=== PATIENT | male | born 1985 | race Two or more races ===

== ENCOUNTER 2022-05-24 15:14 | Emergency (ER) | payer SELFPAY ==
[~2022-05-24] VITALS: Ht 154.9 cm; Wt 61.2 kg
[~2022-05-24 15:14] MED LIST: CELEBREX50 MG PO; CYMBALTA30 MG PO; GABAPENTIN600 MG PO; HYDROXYZINE HCL25 MG PO; SEROQUEL25 MG PO
[2022-05-24] MEDS ORDERED: DOXYCYCLINE HY100 MG PO (23:13)
== END 2022-05-24 23:29 | disposition home or self-care (01) ==
LOC: ED 15:14
DX: L03.116 Cellulitis of left lower limb (principal); L02.416 Cutaneous abscess of left lower limb; F17.200 Nicotine dependence, unspecified, uncomplicated
CPT/HCPCS: 99283; A9270

== ENCOUNTER 2022-06-04 17:00 | Emergency (ER) | payer SELFPAY ==
[~2022-06-04] VITALS: Ht 154.9 cm; Wt 61.2 kg
[~2022-06-04 17:00] MED LIST changes: +DOXYCYCLINE HY100 MG PO
--- OUTSIDE RECORDS SUMMARY | 2022-06-04 17:08 | XMS ---
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 Care Guidelines exist for the following facilities: [facility] ( 07/23/2020 ) [facility] VISIT COUNT (12 MO.) 2 [facility] TOTAL 2 NOTE: Visits indicate total known visits. ED/UCC VISIT TRACKING (12 MO.) 06/04/2022 17:01 [facility] [place] TYPE: Emergency COMPLAINT: - MEDICATION REFILL 05/24/2022 15:15 [facility] [place] TYPE: Emergency COMPLAINT: - SKIN PROBLEM DIAGNOSES: - Cutaneous abscess of left lower limb - Nicotine dependence, unspecified, uncomplicated - Local infection of the skin and subcutaneous tissue, unspecified - Cellulitis of left lower limb INPATIENT VISIT TRACKING (12 MO.) No inpatient visits to display in this time frame [email or web address]
[2022-06-04] MEDS ORDERED: DOXYCYCLINE HY100 MG PO (19:16)
== END 2022-06-04 19:35 | disposition home or self-care (01) ==
LOC: ED 17:00
DX: L03.116 Cellulitis of left lower limb (principal); F17.200 Nicotine dependence, unspecified, uncomplicated
CPT/HCPCS: 99283; A9270

== ENCOUNTER 2022-10-15 13:20 | Emergency (ER) | payer OTHER ==
[~2022-10-15] VITALS: Ht 154.9 cm; Wt 61.2 kg
[2022-10-15] MEDS ORDERED: VISTARIL25 MG PO (17:36)
[2022-10-15] MEDS ORDERED: DOXYCYCLINE HY100 MG PO (17:36)
[2022-10-15 17:53] VITALS: BP 102/68
== END 2022-10-15 17:53 | disposition home or self-care (01) ==
LOC: ED 13:20
DX: L08.89 Other specified local infections of the skin and subcutaneous tissue (principal); B95.8 Unspecified staphylococcus as the cause of diseases classified elsewhere; F17.200 Nicotine dependence, unspecified, uncomplicated
CPT/HCPCS: 99282

== ENCOUNTER 2023-02-12 19:12 | Emergency (ER) | payer OTHER ==
[~2023-02-12] VITALS: Ht 154.9 cm; Wt 50.0 kg
--- OUTSIDE RECORDS SUMMARY | ~2023-02-12 | XMS | Continuity of Care Document ---
Demographics + + + | Address | [address] | | | [place] [address] | + + + | Preferred Language | Unknown | + + + | Marital Status | Never | + + + | Sabianist Affiliation | Unknown | + + + | Race | Unknown | + + + | Ethnic Group | Not or | + + + Author + + + | Author | [facility] | + + + | Organization | [facility] | + + + | Address | [address] | | | [place] [address] | + + + | Phone | | + + + Care Team Providers + + + + | Care Candle Wrapper Name | Role | Phone | + + + + Unavailable | Unavailable | + + + + Allergies No information. Encounters No information. Functional Status No information. Immunizations No information. Medications No information. Problems + + + + | date | description | facility | + + + + | 2023-02-11 17:29 | NICOTINE DEPENDENCE, | [facility] | | | UNSPECIFIED, UNCOMPLICATED | | + + + + | 2023-02-11 17:29 | CUTANEOUS ABSCESS OF LEFT | [facility] | | | UPPER LIMB | | + + + + | 2023-02-11 17:29 | CELLULITIS OF LEFT UPPER | [facility] | | | LIMB | | + + + + | 2023-02-11 17:29 | OTHER CARE HOME (CURRENT) | [facility] | | | DRUG THERAPY | | + + + + Procedures No information. Results/Labs No information. Social History +--------+ + + | date | description | facility | +--------+ + + Vital Signs No information."
--- OUTSIDE RECORDS SUMMARY | ~2023-02-12 | XMS | Continuity of Care Document ---
Demographics + + + | Address | [address] | | | [place] [address] | + + + | Preferred Language | Unknown | + + + | Marital Status | Never | + + + | Cheondoism Affiliation | Unknown | + + + | Race | Unknown | + + + | Ethnic Group | Not or | + + + Author + + + | Author | [facility] | + + + | Organization | [facility] | + + + | Address | [address] | | | [place] [address] | + + + | Phone | | + + + Care Team Providers + + + + | Care Surgical Specialist Name | Role | Phone | + [...] + + | 2023-02-11 17:29 | OTHER [facility] (CURRENT) | [facility] | | | DRUG THERAPY | | + + + + Procedures No information. Results/Labs No information. Social History +--------+ + + | date | description | facility | +--------+ + + Vital Signs No information."
[~2023-02-12 19:12] MED LIST changes: +VISTARIL25 MG PO
--- OUTSIDE RECORDS SUMMARY | 2023-02-12 19:15 | XMS ---
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 ED/UCC VISIT TRACKING (12 MO.) 02/12/2023 19:13 [facility] [place] TYPE: Emergency COMPLAINT: - LT HAND SWELLING 02/11/2023 17:29 [facility] [place] TYPE: Emergency COMPLAINT: - BUG BITE DIAGNOSES: - Cellulitis of left upper limb - Cutaneous abscess of left upper limb - Nicotine dependence, unspecified, uncomplicated - Other intermediate (current) drug therapy 02/11/2023 01:09 [facility] [place] TYPE: Emergency COMPLAINT: - BUG BITE 02/10/2023 17:19 [facility] TYPE: Emergency COMPLAINT: - BUG BITE 11/13/2022 08:16 [facility] [place] TYPE: Emergency COMPLAINT: - MEDICATION REFILL, LEG SORES, WEAK, FAINT DIAGNOSES: - Cellulitis of left lower limb - Cellulitis of right lower limb - Disorder of the skin and subcutaneous tissue, unspecified - Nicotine dependence, unspecified, uncomplicated 10/15/2022 13:22 [facility] TYPE: Emergency COMPLAINT: - L LEG WOUND DIAGNOSES: - Local infection of the skin and subcutaneous tissue, unspecified - Nicotine dependence, unspecified, uncomplicated - Other specified local infections of the skin and subcutaneous tissue - Unspecified staphylococcus as the cause of diseases classified elsewhere 06/04/2022 17:01 [facility] [place] TYPE: Emergency COMPLAINT: - MEDICATION REFILL DIAGNOSES: - Cellulitis of left lower limb - Nicotine dependence, unspecified, uncomplicated 05/24/2022 15:15 [facility] TYPE: Emergency COMPLAINT: - SKIN PROBLEM DIAGNOSES: - Cellulitis of left lower limb - Cutaneous abscess of left lower limb - Local infection of the skin and subcutaneous tissue, unspecified - Nicotine dependence, unspecified, uncomplicated INPATIENT VISIT TRACKING (12 MO.) No inpatient visits to display in this time frame [id number]
[2023-02-12 19:43] VITALS: BP 100/71
== END 2023-02-12 19:43 | disposition home or self-care (01) ==
LOC: ED 19:12
DX: L03.114 Cellulitis of left upper limb (principal)
CPT/HCPCS: 99283

== ENCOUNTER 2023-04-27 11:22 | Emergency (ER) | payer OTHER ==
[~2023-04-27] VITALS: Ht 154.9 cm; Wt 60.9 kg
--- OUTSIDE RECORDS SUMMARY | 2023-04-27 11:26 | XMS ---
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 - Patient with suicidal and/or homicidal ideations eloped. - Patient eloped with IV in place. Details: Patient LWBS CRITERIA MET - 6 ED Visits in 6 Months CARE PROVIDERS -, [place]- Dentist: Rate Marker [facility] PHONE: [phone] Care Guidelines exist for the following facilities: [facility] VISIT COUNT (12 MO.) [address] [place] [address] TOTAL 9 NOTE: Visits indicate total known visits. 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 02/11/2023 01:09 [facility] TYPE: Emergency COMPLAINT: - BUG BITE DIAGNOSES: - Bitten or stung by nonvenomous insect and other nonvenomous arthropods, initial encounter - Insect bite (nonvenomous) of left elbow, initial encounter - Local infection of the skin and subcutaneous tissue, unspecified - Nicotine dependence, unspecified, uncomplicated 02/10/2023 17:19 [facility] TYPE: Emergency COMPLAINT: - BUG BITE 11/13/2022 08:16 [facility] TYPE: Emergency COMPLAINT: - MEDICATION REFILL, LEG SORES, WEAK, FAINT DIAGNOSES: - Cellulitis of left lower limb - Cellulitis of right lower limb - Disorder of the skin and subcutaneous tissue, unspecified - Nicotine dependence, unspecified, uncomplicated 10/15/2022 13:22 [facility] TYPE: Emergency COMPLAINT: - L LEG [...] Nicotine dependence, unspecified, uncomplicated 05/24/2022 15:15 [facility] TYPE: Emergency COMPLAINT: - SKIN PROBLEM DIAGNOSES: - Cellulitis of left lower limb - Cutaneous abscess of left lower limb - Local infection of the skin and subcutaneous tissue, unspecified - Nicotine dependence, unspecified, uncomplicated INPATIENT VISIT TRACKING (12 MO.) No inpatient visits to display in this time frame [id number]
[2023-04-27 12:59] LABS: HEMATOCRIT 40.6 % (35.0-50.0); HEMOGLOBIN 13.2 g/dL (12.0-18.0); MCH 31.1 (27-36); MCHC 32.6 g/dl (30-36); MCV 95.3 fl (81-99); PLATELET COUNT 270 K/uL (140-440); RBC 4.26 M/ul (4.3-5.7); RDW 13.4 (10.5-15.0)
[2023-04-27 13:10] LABS: ALBUMIN 3.3 g/dL (3.4-5.0); ALBUMIN/GLOBULIN RATIO 0.97 (1.1-2.4); ANION GAP 8.3 (7-21); BILIRUBIN, TOTAL 1.8 ng/dL (0.2-1.0); BUN/CREATININE RATIO 18.36 (6.0-28.6); CALCIUM 8.7 mg/dL (8.5-10.1); CREATININE, SERUM 0.98 mg/dL (0.70-1.30); POTASSIUM 4.3 mmol/L (3.5-5.1); PROTEIN, TOTAL 6.7 g/dL (6.4-8.2)
[2023-04-27 13:23] LABS: EOSINOPHILS, MANUAL DIFF 1; LYMPHOCYTES, MANUAL DIFF 9; MONOCYTES, MANUAL DIFF 6; NEUTROPHILS, MANUAL DIFF 84
[2023-04-27 14:43] LABS: LACTIC ACID, BLOOD 1.5 mmol/L (0.4-2.0)
[2023-04-27] MEDS ORDERED: DOXYCYCLINE HY100 MG PO (15:45)
[2023-04-27 15:57] VITALS: BP 101/69
== END 2023-04-27 15:55 | disposition home or self-care (01) ==
LOC: ED 11:22
PROVIDERS: Emergency Medicine
DX: L02.415 Cutaneous abscess of right lower limb (principal); L03.115 Cellulitis of right lower limb; F17.200 Nicotine dependence, unspecified, uncomplicated; Z79.899 Other long term (current) drug therapy; Z59.00 Homelessness unspecified
CPT/HCPCS: 36415; 80053; 83605; 85025; J0878

== ENCOUNTER 2023-04-29 16:07 | Emergency (ER) | payer OTHER ==
[~2023-04-29] VITALS: Ht 154.9 cm; Wt 49.9 kg
--- OUTSIDE RECORDS SUMMARY | 2023-04-29 16:09 | XMS ---
PreManage Notification: NYDIA BLANCO Security Corporate Safety Coordinator Events 1 event(s) in the past 18 months Most recent security events: Elopement at [facility] 02/10/2023 17:19 - Patient eloped before treatment completed. - Patient with suicidal and/or homicidal ideations eloped. - Patient eloped with IV in place. Details: Patient LWBS CRITERIA MET - 6 ED Visits in 6 Months - [facility] - 2 Visits in 30 Days CARE PROVIDERS -, [place]- Dentist: Bluing Oven Tender [facility] PHONE: [phone] Care Guidelines exist for the following facilities: [facility] VISIT COUNT (12 MO.) 10 [facility] TOTAL 10 NOTE: Visits indicate total known visits. 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 therapy - Pain in right thigh 02/12/2023 19:13 [facility] TYPE: Emergency COMPLAINT: - LT HAND SWELLING DIAGNOSES: - Cellulitis of left upper limb - Encounter for change or removal of nonsurgical wound dressing 02/11/2023 17:29 [facility] TYPE: Emergency COMPLAINT: - BUG BITE DIAGNOSES: - Cellulitis of left upper limb - Cutaneous abscess of left upper limb - Nicotine dependence, unspecified, uncomplicated - Other equipment operator intermodal yard (current) drug therapy 02/11/2023 01:09 [facility] [...] COMPLAINT: - BUG BITE 11/13/2022 08:16 [facility] [place] TYPE: Emergency COMPLAINT: - MEDICATION REFILL, [...] - Nicotine dependence, unspecified, uncomplicated 05/24/2022 15:[address] [facility] [place] TYPE: Emergency COMPLAINT: - SKIN PROBLEM DIAGNOSES: - Cellulitis of left lower limb - Cutaneous abscess of left lower limb - Local infection of the skin and subcutaneous tissue, unspecified - Nicotine dependence, unspecified, uncomplicated INPATIENT VISIT TRACKING (12 MO.) No inpatient visits to display in this time frame [email or web address]
[2023-04-29 16:49] VITALS: BP 101/68
== END 2023-04-29 16:55 | disposition home or self-care (01) ==
LOC: ED 16:07
DX: Z48.01 Encounter for change or removal of surgical wound dressing (principal); Z48.03 Encounter for change or removal of drains; F17.200 Nicotine dependence, unspecified, uncomplicated
CPT/HCPCS: 99282

== ENCOUNTER 2023-05-05 08:13 | Emergency (ER) | payer OTHER ==
[~2023-05-05] VITALS: Ht 154.9 cm; Wt 51.3 kg
--- OUTSIDE RECORDS SUMMARY | 2023-05-05 08:15 | XMS ---
PreManage Notification: NYDIA BLANCO Security Rental Management Trainee Events 1 event(s) in the past 18 months Most recent security events: Elopement at [facility] 02/10/2023 17:19 - Patient eloped before treatment completed. - Patient with suicidal and/or homicidal ideations eloped. - Patient eloped with IV in place. Details: Patient LWBS CRITERIA MET - 6 ED Visits in 6 Months - [facility] - 2 Visits in 30 Days CARE PROVIDERS -, [place]- Dentist: Volcanology Professor [facility] PHONE: [phone] Care Guidelines exist for the following facilities: [facility] VISIT COUNT (12 MO.) [address] [facility] TOTAL 11 NOTE: Visits indicate total known visits. ED/UCC VISIT TRACKING (12 MO.) 05/05/2023 08:13 [facility] [place] TYPE: Emergency COMPLAINT: - MEDICATION REFILL 04/29/2023 16:07 [facility] TYPE: Emergency COMPLAINT: - WOUND CHECK DIAGNOSES: - Encounter for change or removal of drains - Encounter for change or removal of surgical wound dressing - Nicotine dependence, unspecified, uncomplicated 04/27/2023 11:22 [facility] TYPE: Emergency COMPLAINT: - R LEG WOUND DIAGNOSES: - Cellulitis of right lower limb - Cutaneous abscess of right lower limb - Homelessness unspecified - Nicotine dependence, unspecified, uncomplicated - Other correction (current) drug therapy - Pain in right [...] - Nicotine dependence, unspecified, uncomplicated - Other correction (current) drug therapy 02/11/2023 01:09 [facility] [...] visits to display in this time frame [id number]
[2023-05-05] MEDS ORDERED: DOXYCYCLINE HY100 MG PO (08:36)
[2023-05-05 08:39] VITALS: BP 116/79
== END 2023-05-05 08:41 | disposition home or self-care (01) ==
LOC: ED 08:13
DX: Z76.0 Encounter for issue of repeat prescription (principal); Z48.01 Encounter for change or removal of surgical wound dressing; Z86.14 Personal history of Methicillin resistant Staphylococcus aureus infection; F17.200 Nicotine dependence, unspecified, uncomplicated
CPT/HCPCS: 99282